=== PATIENT | male | born 1970 | race Caucasian/White ===

== ENCOUNTER 2023-06-26 19:18 | Emergency (ER) | payer OTHER ==
[~2023-06-26] VITALS: Ht 165.1 cm; Wt 130.0 kg
[2023-06-26 19:34] VITALS: BP 121/71; RESP 14; TEMP 98.5; O2SAT 100
[2023-06-26 20:05] LABS: CLARITY URINE CLOUDY (CLEAR); COLOR URINE DARK YELLOW (YELLOW); GLUCOSE URINE NEGATIVE (NEGATIVE); KETONES URINE TRACE (NEGATIVE); LEUKOCYTE ESTERASE URINE 1+ (NEGATIVE); NITRITE URINE NEGATIVE (NEGATIVE); OCCULT BLOOD URINE 3+ (NEGATIVE); PH URINE 5.5 (4.5-8.0); PROTEIN URINE 1+ (NEGATIVE); SPECIFIC GRAVITY URINE 1.026 (1.005-1.030)
[2023-06-26 20:08] LABS: RBC URINE TNTC /hpf (0-2); YEAST URINE NONE SEEN
[2023-06-26 20:20] LABS: BACTERIA URINE 1+; SQUAMOUS EPITHELIAL CELL URINE FEW /lpf (RARE/1+)
[2023-06-26 20:21] LABS: MUCUS URINE 1+ /lpf (NONE/TRACE)
[2023-06-26 20:25] LABS: BASOPHILS % 0.9 % (0.0-2.0); EOSINOPHILS % 1.2 % (0.0-5.0); HEMATOCRIT. 45.5 % (42.0-52.0); HEMOGLOBIN. 15.7 g/dL (14.0-18.0); LYMPHOCYTES % 13.4 % (20.0-50.0); MEAN CORPUSCULAR HEMOGLOBIN 30.4 pg (28.0-32.0); MEAN CORPUSCULAR HGB CONC 34.5 g/dL (31.0-37.0); MEAN CORPUSCULAR VOLUME 88.1 fL (80.0-94.0); MONOCYTES % 6.8 % (2.0-8.0); NEUTROPHILS % 77.7 % (40.0-76.0); RED BLOOD CELL COUNT 5.16 mill/uL (4.7-6.1); RED CELL DISTRIBUTION WIDTH 14.2 % (11.6-14.6); WHITE BLOOD COUNT 7.9 x1000/uL (4.5-11.0)
[2023-06-26 20:29] LABS: DIFFERENTIAL COMMENT 1
[2023-06-26 20:33] LABS: CHLORIDE 105 mEq/L (98-107); INDEX HEMOLYSI 1 (1-3); INDEX ICTERIC 1 (1-4); INDEX LIPEMIC 1 (1-3); POTASSIUM 3.9 mEq/L (3.5-5.1); SODIUM 138 mEq/L (136-145)
[2023-06-26 20:40] LABS: ALANINE AMINOTRANSFERASE 16 IU/L (13-61); ASPARTATE AMINOTRANSFERASE 14 IU/L (15-37); BILIRUBIN TOTAL 0.8 mg/dL (0.1-1.0); CALCIUM 8.9 mg/dL (8.5-10.1); CARBON DIOXIDE 28 mEq/L (21-32); CREATININE 0.9 mg/dL (0.6-1.3); GLUCOSE 108 mg/dL (70-105); PROTEIN TOTAL 7.6 g/dL (6.0-8.3); UREA NITROGEN BLOOD 14 mg/dL (7-21)
[2023-06-26 20:44] LABS: MEAN PLATELET VOLUME 8.3 fl (7.4-10.4); PLATELET 240 x1000/uL (130-400)
[2023-06-26] MEDS ORDERED: KETOROLAC 30MG/ML VIAL IM ONE (21:15)
[2023-06-26] MEDS ORDERED: SULFAMETHOXAZOLE/TRIMETHOPRIM 800/160MG TABLET PO ONE (22:45)
[2023-06-26] MEDS ORDERED: TAMSULOSIN HCL 0.4MG SR CAPSULE PO ONE (22:45)
[2023-06-26] MEDS ORDERED: IBUP-2029 MT (23:20)
[2023-06-26] MEDS ORDERED: T3 PO (23:20)
[2023-06-26] MEDS ORDERED: SULF1TAB48 MT (23:20)
[2023-06-26] MEDS ORDERED: TAMS-11 MT (23:20)
[2023-06-26 23:45] VITALS: PULSE 99
[2023-06-26] MEDS ORDERED: SULFAMETHOXAZOLE/TRIMETHOPRIM 800/160MG TABLET PO NR (23:45)
[2023-06-26] MEDS ORDERED: TAMSULOSIN HCL 0.4MG SR CAPSULE PO NR (23:45)
== END 2023-06-27 | disposition home or self-care (01) ==
LOC: ER 19:18
DX: N20.1 Calculus of ureter (principal); N39.0 Urinary tract infection, site not specified; Z79.899 Other long term (current) drug therapy
CPT/HCPCS: 80053; 81003; 83690; 85025; 36415; 74176; 96372; 99285; J1885; Z7610